=== PATIENT | female | born 1990 | race Caucasian/White ===

== ENCOUNTER 2017-11-28 19:51 | Observation (INO) | payer OTHER, SELFPAY ==
[~2017-11-28] VITALS: Ht 154.9 cm; Wt 52.5 kg
[2017-11-28 20:28] LABS: BASOPHILS # (AUTO) 0.02 x10^3/uL (0-0.1); BASOPHILS % (AUTO) 0 % (0-1); EOSINOPHILS # (AUTO) 0.17 x10^3/uL (0-0.4); EOSINOPHILS % (AUTO) 2 % (1-7); LYMPHOCYTES # (AUTO) 2.65 x10^3/uL (1-3.4); LYMPHOCYTES % (AUTO) 32 % (22-44); MD NO; MEAN CORPUSCULAR HEMOGLOBIN 31.8 pg (27.0-34.8); MEAN CORPUSCULAR HGB CONC 34.5 g/dL (32.4-35.8); MEAN CORPUSCULAR VOLUME 92.2 fL (80-100); MEAN PLATELET VOLUME 8.5 fL (7.4-10.4); MONOCYTES % (AUTO) 7 % (2-9); NEUTROPHILS # (AUTO) 4.97 x10^3/uL (1.8-6.8); NEUTROPHILS % (AUTO) 59 % (42-75); PLATELET COUNT 275 x10^3/uL (130-400); RED BLOOD COUNT 4.26 x10^6/uL (3.82-5.3); RED CELL DISTRIBUTION WIDTH 12.6 % (9.6-15.2)
[2017-11-28 20:32] LABS: ALBUMIN 3.8 g/dL (3.4-5.0); ANION GAP 9 mmol/L (5-15); CALCIUM 8.5 mg/dL (8.5-10.1); CHLORIDE 109 mmol/L (98-107); CREATININE 0.68 mg/dL (0.55-1.02)
[2017-11-28 20:41] LABS: MICROSCOPIC INDICATED
[2017-11-28 20:49] LABS: CULTURE INDICATED? YES
[2017-11-28] MEDS ORDERED: SODIUM CHLORIDE 0.9% 1,000 ML IV ONE (21:47)
[2017-11-28] MEDS ORDERED: ONDANSETRON 2MG/ML, 2ML ONE (21:55)
[2017-11-28] MEDS ORDERED: MORPHINE SULFATE 4 MG/ML, 1ML ONE (21:55)
[2017-11-28] MEDS ORDERED: SODIUM CHLORIDE FLUSH 10ML SYR IVF ONE (22:00)
[2017-11-28] MEDS ORDERED: ONDANSETRON 2MG/ML, 2ML IVPush ONE (22:00)
[2017-11-28] MEDS ORDERED: morphine SULFATE 10 MG/ML, 1ML IVPush ONE (22:00)
[2017-11-28 22:05] LABS: INTERNATIONAL NORMALIZED RATIO 0.98 (0.93-1.1); PROTHROMBIN TIME 10.1 Seconds (9.6-11.5)
[2017-11-29] MEDS ORDERED: TEMAZEPAM 15 MG CAPSULE PO PRN
[2017-11-29] MEDS ORDERED: ONDANSETRON ODT 4 MG PO PRN
[2017-11-29] MEDS ORDERED: OXYcodone/APAP 10/325MG TABLET PO PRN
[2017-11-29] MEDS ORDERED: LIDODERM 5% PATCH TD PRN
[2017-11-29] MEDS ORDERED: DOCUSATE 100 MG CAPSULE PO PRN
[2017-11-29 01:00] VITALS: BP 112/68
[2017-11-29 01:07] VITALS: BP 112/68
[2017-11-29 03:15] VITALS: BP 100/66
[2017-11-29 05:07] LABS: BASOPHILS # (AUTO) 0.03 x10^3/uL (0-0.1); BASOPHILS % (AUTO) 0 % (0-1); EOSINOPHILS # (AUTO) 0.09 x10^3/uL (0-0.4); EOSINOPHILS % (AUTO) 1 % (1-7); LYMPHOCYTES # (AUTO) 2.63 x10^3/uL (1-3.4); LYMPHOCYTES % (AUTO) 28 % (22-44); MD NO; MEAN CORPUSCULAR HEMOGLOBIN 31.5 pg (27.0-34.8); MEAN CORPUSCULAR HGB CONC 34.6 g/dL (32.4-35.8); MEAN CORPUSCULAR VOLUME 91.1 fL (80-100); MEAN PLATELET VOLUME 8.5 fL (7.4-10.4); MONOCYTES # (AUTO) 0.59 x10^3/uL (0.2-0.8); MONOCYTES % (AUTO) 6 % (2-9); NEUTROPHILS # (AUTO) 6.02 x10^3/uL (1.8-6.8); NEUTROPHILS % (AUTO) 64 % (42-75); PLATELET COUNT 246 x10^3/uL (130-400); RED BLOOD COUNT 3.59 x10^6/uL (3.82-5.3); RED CELL DISTRIBUTION WIDTH 12.8 % (9.6-15.2)
[2017-11-29 06:42] VITALS: BP 99/61
[2017-11-29 12:08] VITALS: BP 95/60
== END 2017-11-29 13:38 | disposition home or self-care (01) ==
LOC: ED 22:59 → EDIP 23:34 → INTOOBSV 23:34 → 3NE 11-29 00:10 → DCLOUNGE 11-29 13:29
PROVIDERS: ADMIT Hospitalist; ATTEND Hospitalist
DX: N83.201 Unspecified ovarian cyst, right side (principal); Z33.1 Pregnant state, incidental; Z83.3 Family history of diabetes mellitus
CPT/HCPCS: 36415; 76801; 80048; 81001; 82040; 84702; 85018; 85025; 85610; 86850; 86900; 87086; 96374; 96375; 99285; G0378; J2270; J2405; J7030; Q0162